=== PATIENT | female | born 1940 | race Caucasian/White ===

== ENCOUNTER 2018-02-14 16:31 | Emergency (ER) | payer OTHER ==
[~2018-02-14] VITALS: Ht 157.4 cm; Wt 78.5 kg
[~2018-02-14 16:31] MED LIST: AEROECLIPSE NEB1 DEV DEVI; ALPRAZOLAM0.5 M3 PO; CITALOPRAM HYDR20 MG PO; DOXYCYCLINE100 M3 PO; DRAMAMINE LESS25 MG PO; DUONEB 3 MG/3 ML3 M1 NEB; FUROSEMIDE20 MG PO; HYDROCODONE BIT1 T11 PO; LEVOFLOXACIN500 MG PO; LISINOPRIL10 MG PO; MIDODRINE HCL10 MG PO; MUCINEX1200 M1 PO; NORCO 325 MG-51 TAB PO; NORCO 5-325 TA1 EACH PO; PREDNISONE10 MG PO; SIMVASTATIN10 MG PO; SYNTHROID,LEV100 MCG PO; TESSALON PERLE100 M1 PO; ZITHROMAX250 MG PO; ZOFRAN4 MG PO
[2018-02-14 17:22] LABS: BILIRUBIN NEGATIVE (NEGATIVE); BLOOD 2+ (NEGATIVE); CLARITY CLEAR (CLEAR); COLOR YELLOW (YELLOW); GLUCOSE NEGATIVE (NEGATIVE); KETONE NEGATIVE (NEGATIVE); LEUKO ESTERASE 3+ (NEGATIVE); NITRITE NEGATIVE (NEGATIVE); SPECIFIC GRAVITY <= 1.005 (1.005-1.030); UROBILINOGEN 0.2 E.U./dl (0.2-1.0)
[2018-02-14 17:30] LABS: BACTERIA TRACE
[2018-02-14 17:31] LABS: WBC TNTC wbc/hpf (0-5)
[2018-02-14] MEDS ORDERED: AMINOPHYLLIN200 MG PO (17:39)
[2018-02-14] MEDS ORDERED: PYRIDIUM200 M1 PO (17:39)
[2018-02-14 17:46] VITALS: BP 140/70
== END 2018-02-14 17:58 | disposition home or self-care (01) ==
LOC: ED 16:31
PROVIDERS: Physician Assistant
DX: N39.0 Urinary tract infection, site not specified (principal); R31.9 Hematuria, unspecified; Z90.49 Acquired absence of other specified parts of digestive tract; Z79.899 Other long term (current) drug therapy

== ENCOUNTER 2018-03-11 09:28 | Emergency (ER) | payer OTHER ==
[~2018-03-11] VITALS: Ht 157.4 cm; Wt 77.1 kg
[~2018-03-11 09:28] MED LIST changes: +AMINOPHYLLIN200 MG PO; +PYRIDIUM200 M1 PO
[2018-03-11 09:32] VITALS: BP 152/78
[2018-03-11 10:04] LABS: BILIRUBIN NEGATIVE (NEGATIVE); BLOOD 1+ (NEGATIVE); CLARITY CLEAR (CLEAR); COLOR YELLOW (YELLOW); GLUCOSE NEGATIVE (NEGATIVE); KETONE NEGATIVE (NEGATIVE); LEUKO ESTERASE NEGATIVE (NEGATIVE); NITRITE NEGATIVE (NEGATIVE); UROBILINOGEN 0.2 E.U./dl (0.2-1.0)
[2018-03-11 10:12] LABS: BACTERIA TRACE; EPITHELIAL CELLS 30-35
[2018-03-11 10:13] LABS: URINE AMPHETAMINES < 1000 (1000ng/ml); URINE BARBITURATES < 200 (200ng/ml); URINE BENZODIAZEPINES > 200 (200ng/ml); URINE CANNABINOIDS (THC) < 50 (50ng/ml); URINE COCAINE < 300 (300ng/ml); URINE METHADONE < 300 (300ng/ml); URINE OPIATES > 300 (300ng/ml)
[2018-03-11 10:17] LABS: URINE PHENCYCLIDINE < 25 (25ng/ml)
[2018-03-11] MEDS ORDERED: [UNRECOGNIZED DRUG - CODE] MC (11:35)
== END 2018-03-11 11:50 | disposition home or self-care (01) ==
LOC: ED 09:28
PROVIDERS: Emergency Medicine
DX: B37.2 Candidiasis of skin and nail (principal); G89.29 Other chronic pain; M54.5 Low back pain; K21.9 Gastro-esophageal reflux disease without esophagitis; I10 Essential (primary) hypertension; E78.5 Hyperlipidemia, unspecified; E66.9 Obesity, unspecified; Z68.34 Body mass index [BMI] 34.0-34.9, adult; Z79.899 Other long term (current) drug therapy

== ENCOUNTER 2018-05-13 09:18 | Emergency (ER) | payer OTHER ==
[~2018-05-13] VITALS: Wt 77.1 kg
[~2018-05-13 09:18] MED LIST changes: +[UNRECOGNIZED DRUG - CODE] MC
[2018-05-13 09:19] VITALS: BP 151/78
== END 2018-05-13 11:10 | disposition home or self-care (01) ==
LOC: ED 09:18
DX: G89.29 Other chronic pain (principal); I10 Essential (primary) hypertension; K21.9 Gastro-esophageal reflux disease without esophagitis; E78.5 Hyperlipidemia, unspecified; E66.9 Obesity, unspecified; Z68.34 Body mass index [BMI] 34.0-34.9, adult; Z90.49 Acquired absence of other specified parts of digestive tract; Z79.899 Other long term (current) drug therapy

== ENCOUNTER 2019-06-16 17:48 | Emergency (ER) | payer OTHER ==
[~2019-06-16] VITALS: Ht 157.4 cm; Wt 77.1 kg
[~2019-06-16 17:48] MED LIST changes: +CEFUROXIME AXE500 MG PO; +SIMVASTATIN20 MG PO
[2019-06-16 17:50] VITALS: BP 168/38
[2019-06-16 18:26] LABS: BASO % 0.2 % (0.0-1.0); EOS # 0.1 10*3/uL (0.0-0.4); EOS % 1.1 % (1.0-4.0); HEMATOCRIT 41.1 % (37.0-47.0); HEMOGLOBIN 12.9 g/dl (12.0-16.0); LYMPH # 3.1 10*3/uL (1.3-4.4); LYMPH % 37.1 % (27.0-41.0); MEAN CELL VOLUME 89.3 fl (81.0-99.0); MEAN CORPUSCULAR HGB CONC 31.4 g/dl (33.0-37.0); MEAN PLATELET VOLUME 11.1 fl (9.6-12.3); MONO # 0.7 10*3/uL (0.1-1.0); MONO % 8.3 % (3.0-9.0); NEUT # 4.5 10*3/uL (2.3-7.9); NEUT % 53.1 % (47.0-73.0); PLATELET COUNT AUTOMATED 254 10*3/uL (130-400); RED CELL DISTRI WIDTH 14.2 % (0-14.5); WHITE BLOOD COUNT 8.4 10*3/uL (4.8-10.8)
[2019-06-16 18:40] LABS: ALKALINE PHOSPHATASE 88 U/L (45-117); BUN 10 mg/dl (7-24); CHLORIDE 105 mmol/L (98-107); CREATININE 0.86 mg/dL (0.55-1.02); LIPASE 136 U/L (73-393); POTASSIUM 4.1 mmol/L (3.5-5.1); SGOT/AST 14 IU/L (3-35); SGPT/ALT 27 U/L (12-78); SODIUM 140 mmol/L (136-145); TOTAL PROTEIN 7.2 gm/dL (6.4-8.2)
[2019-06-16 18:58] LABS: BILIRUBIN NEGATIVE (NEGATIVE); BLOOD TRACE-INTACT (NEGATIVE); CLARITY CLEAR (CLEAR); COLOR YELLOW (YELLOW); GLUCOSE NEGATIVE (NEGATIVE); KETONE NEGATIVE (NEGATIVE); LEUKO ESTERASE NEGATIVE (NEGATIVE); NITRITE NEGATIVE (NEGATIVE); PH 7.5 (5.0-9.0); UROBILINOGEN 0.2 E.U./dl (0.2-1.0)
[2019-06-16 19:21] LABS: BACTERIA 1+; MUCOUS 2+; RBC 0-2 rbc/hpf (0-2)
[2019-06-16] MEDS ORDERED: ZOFRAN4 MG PO (22:30)
== END 2019-06-16 23:12 | disposition home or self-care (01) ==
LOC: ED 17:48
PROVIDERS: Nurse Practitioner Family
DX: K29.70 Gastritis, unspecified, without bleeding (principal); G89.29 Other chronic pain; I10 Essential (primary) hypertension; K21.9 Gastro-esophageal reflux disease without esophagitis; E78.5 Hyperlipidemia, unspecified; E66.9 Obesity, unspecified; Z68.30 Body mass index [BMI] 30.0-30.9, adult; Z79.2 Long term (current) use of antibiotics; Z79.899 Other long term (current) drug therapy; Z90.49 Acquired absence of other specified parts of digestive tract

== ENCOUNTER 2020-08-20 13:44 | Emergency (ER) | payer OTHER ==
[~2020-08-20] VITALS: Ht 157.4 cm; Wt 77.1 kg
[2020-08-20 13:55] VITALS: BP 137/55
[2020-08-20] MEDS ORDERED: FLONASE ALLERG9.9 ML NAS ×2 (14:08→14:16)
[2020-08-20] MEDS ORDERED: AUGMENTIN 875875 MG PO ×2 (14:08→14:16)
== END 2020-08-20 14:07 | disposition home or self-care (01) ==
LOC: ED 13:44
DX: H66.91 Otitis media, unspecified, right ear (principal); I10 Essential (primary) hypertension; K21.9 Gastro-esophageal reflux disease without esophagitis; F41.9 Anxiety disorder, unspecified; F32.9 Major depressive disorder, single episode, unspecified; Z79.899 Other long term (current) drug therapy

== ENCOUNTER 2021-05-07 15:46 | Emergency (ER) | payer OTHER ==
[~2021-05-07] VITALS: Ht 157.4 cm; Wt 73.0 kg
[~2021-05-07 15:46] MED LIST changes: +AUGMENTIN 875875 MG PO; +FLONASE ALLERG9.9 ML NAS
[2021-05-07 15:51] VITALS: BP 165/78
[2021-05-07 16:43] LABS: BASO % 0.5 % (0.0-1.0); EOS # 0.1 10*3/uL (0.0-0.4); EOS % 1.5 % (1.0-4.0); HEMATOCRIT 39.6 % (37.0-47.0); LYMPH # 2.8 10*3/uL (1.3-4.4); LYMPH % 32.6 % (27.0-41.0); MEAN CELL VOLUME 84.8 fl (81.0-99.0); MEAN CORPUSCULAR HGB 27.2 pg (27.0-31.0); MEAN CORPUSCULAR HGB CONC 32.1 g/dl (33.0-37.0); MEAN PLATELET VOLUME 11.9 fl (9.6-12.3); MONO # 0.7 10*3/uL (0.1-1.0); MONO % 8.4 % (3.0-9.0); NEUT # 4.8 10*3/uL (2.3-7.9); NEUT % 56.8 % (47.0-73.0); PLATELET COUNT AUTOMATED 325 10*3/uL (130-400); RED BLOOD COUNT 4.67 10*6/uL (4.10-5.10); RED CELL DISTRI WIDTH 14.3 % (0-14.5); WHITE BLOOD COUNT 8.4 10*3/uL (4.8-10.8)
[2021-05-07 17:07] LABS: ALBUMIN 3.4 gm/dl (3.1-4.5); ALKALINE PHOSPHATASE 79 U/L (45-117); BUN 10 mg/dl (7-24); CHLORIDE 104 mmol/L (98-107); CREATININE 0.74 mg/dL (0.55-1.02); LIPASE 94 U/L (73-393); POTASSIUM 3.6 mmol/L (3.5-5.1); SGOT/AST 13 IU/L (3-35); SGPT/ALT 15 U/L (12-78); SODIUM 141 mmol/L (136-145); TOTAL PROTEIN 6.4 gm/dL (6.4-8.2)
[2021-05-07 17:09] LABS: TROPONIN I < 0.015 ng/ml (<0.045)
[2021-05-07] MEDS ORDERED: PRILOSEC20 M1 PO (18:06)
== END 2021-05-07 18:57 | disposition home or self-care (01) ==
LOC: ED 15:46
PROVIDERS: Emergency Medicine
DX: R10.13 Epigastric pain (principal); R10.11 Right upper quadrant pain; K21.9 Gastro-esophageal reflux disease without esophagitis; G89.29 Other chronic pain; I10 Essential (primary) hypertension; Z90.49 Acquired absence of other specified parts of digestive tract; Z79.899 Other long term (current) drug therapy

== ENCOUNTER 2021-06-04 14:09 | Emergency (ER) | payer OTHER ==
[~2021-06-04] VITALS: Ht 157.4 cm; Wt 72.1 kg
[~2021-06-04 14:09] MED LIST changes: +PRILOSEC20 M1 PO
[2021-06-04 14:14] VITALS: BP 162/71
[2021-06-04 15:17] LABS: BASO % 0.3 % (0.0-1.0); EOS # 0.2 10*3/uL (0.0-0.4); EOS % 2.3 % (1.0-4.0); HEMATOCRIT 39.4 % (37.0-47.0); LYMPH # 2.6 10*3/uL (1.3-4.4); MEAN CELL VOLUME 85.8 fl (81.0-99.0); MEAN CORPUSCULAR HGB 27.2 pg (27.0-31.0); MEAN CORPUSCULAR HGB CONC 31.7 g/dl (33.0-37.0); MEAN PLATELET VOLUME 10.6 fl (9.6-12.3); MONO # 0.8 10*3/uL (0.1-1.0); MONO % 9.6 % (3.0-9.0); NEUT % 57.5 % (47.0-73.0); PLATELET COUNT AUTOMATED 291 10*3/uL (130-400); RED BLOOD COUNT 4.59 10*6/uL (4.10-5.10); RED CELL DISTRI WIDTH 14.1 % (0-14.5); WHITE BLOOD COUNT 8.7 10*3/uL (4.8-10.8)
[2021-06-04 15:38] LABS: ALBUMIN 3.3 gm/dl (3.1-4.5); ALKALINE PHOSPHATASE 84 U/L (45-117); BUN 14 mg/dl (7-24); CHLORIDE 106 mmol/L (98-107); CREATININE 0.76 mg/dL (0.55-1.02); LIPASE 90 U/L (73-393); POTASSIUM 4.2 mmol/L (3.5-5.1); SGOT/AST 12 IU/L (3-35); SGPT/ALT 18 U/L (12-78); SODIUM 140 mmol/L (136-145); TOTAL PROTEIN 6.5 gm/dL (6.4-8.2)
[2021-06-04] MEDS ORDERED: OMEPRAZOLE20 M2 PO (16:40)
[2021-06-04] MEDS ORDERED: ZOFRAN4 MG PO (16:40)
== END 2021-06-04 17:24 | disposition home or self-care (01) ==
LOC: ED 14:09
PROVIDERS: Physician Assistant
DX: R10.9 Unspecified abdominal pain (principal); R11.10 Vomiting, unspecified; K30 Functional dyspepsia; Z79.899 Other long term (current) drug therapy; Z79.2 Long term (current) use of antibiotics; Z90.49 Acquired absence of other specified parts of digestive tract; Z96.22 Myringotomy tube(s) status

== ENCOUNTER 2021-08-27 11:43 | Emergency (ER) | payer OTHER ==
[~2021-08-27] VITALS: Wt 69.9 kg
[~2021-08-27 11:43] MED LIST changes: +OMEPRAZOLE20 M2 PO
[2021-08-27 11:56] VITALS: BP 140/70
[2021-08-27] MEDS ORDERED: NEURONTIN100 MG PO (12:25)
[2021-08-27 12:35] LABS: BASO % 0.4 % (0.0-1.0); EOS # 0.2 10*3/uL (0.0-0.4); EOS % 2.6 % (1.0-4.0); LYMPH # 2.4 10*3/uL (1.3-4.4); LYMPH % 34.9 % (27.0-41.0); MEAN CELL VOLUME 86.2 fl (81.0-99.0); MEAN CORPUSCULAR HGB 26.5 pg (27.0-31.0); MEAN CORPUSCULAR HGB CONC 30.8 g/dl (33.0-37.0); MEAN PLATELET VOLUME 10.2 fl (9.6-12.3); MONO # 0.6 10*3/uL (0.1-1.0); MONO % 8.1 % (3.0-9.0); NEUT # 3.7 10*3/uL (2.3-7.9); NEUT % 53.7 % (47.0-73.0); PLATELET COUNT AUTOMATED 304 10*3/uL (130-400); RED BLOOD COUNT 4.64 10*6/uL (4.10-5.10); RED CELL DISTRI WIDTH 14.3 % (0-14.5); WHITE BLOOD COUNT 6.8 10*3/uL (4.8-10.8)
[2021-08-27 12:47] LABS: BUN 12 mg/dl (7-24); CHLORIDE 106 mmol/L (98-107); CREATININE 0.66 mg/dL (0.55-1.02); POTASSIUM 4.3 mmol/L (3.5-5.1); SODIUM 139 mmol/L (136-145)
[2021-08-27 12:52] LABS: BILIRUBIN Negative (Negative); BLOOD Negative (Negative); CLARITY Clear (Clear); COLOR Yellow (Yellow); GLUCOSE Negative (Negative); KETONE Trace (Negative); LEUKO ESTERASE Negative (Negative); NITRITE Negative (Negative); PH 6.5 (4.5-8.0)
[2021-08-27] MEDS ORDERED: PYRIDIUM200 M1 PO (13:21)
== END 2021-08-27 13:29 | disposition home or self-care (01) ==
LOC: ED 11:43
PROVIDERS: Nurse Practitioner Family
DX: R30.0 Dysuria (principal); R10.9 Unspecified abdominal pain; M79.661 Pain in right lower leg; M79.662 Pain in left lower leg; Z79.899 Other long term (current) drug therapy

== ENCOUNTER 2021-09-24 14:56 | Emergency (ER) | payer OTHER ==
[~2021-09-24] VITALS: Wt 72.1 kg
[~2021-09-24 14:56] MED LIST changes: +NEURONTIN100 MG PO
[2021-09-24 15:51] LABS: BASO % 0.3 % (0.0-1.0); EOS % 0.1 % (1.0-4.0); HEMATOCRIT 40.4 % (37.0-47.0); LYMPH # 2.3 10*3/uL (1.3-4.4); LYMPH % 30.3 % (27.0-41.0); MEAN CELL VOLUME 83.3 fl (81.0-99.0); MEAN CORPUSCULAR HGB 26.8 pg (27.0-31.0); MEAN CORPUSCULAR HGB CONC 32.2 g/dl (33.0-37.0); MEAN PLATELET VOLUME 10.5 fl (9.6-12.3); MONO # 0.5 10*3/uL (0.1-1.0); MONO % 6.5 % (3.0-9.0); NEUT # 4.7 10*3/uL (2.3-7.9); NEUT % 62.5 % (47.0-73.0); PLATELET COUNT AUTOMATED 355 10*3/uL (130-400); RED BLOOD COUNT 4.85 10*6/uL (4.10-5.10); RED CELL DISTRI WIDTH 14.2 % (0-14.5); WHITE BLOOD COUNT 7.5 10*3/uL (4.8-10.8)
[2021-09-24 16:16] LABS: ALBUMIN 3.9 gm/dl (3.1-4.5); ALKALINE PHOSPHATASE 169 U/L (45-117); BUN 15 mg/dl (7-24); CHLORIDE 100 mmol/L (98-107); CREATININE 0.96 mg/dL (0.55-1.02); LIPASE 91 U/L (73-393); POTASSIUM 3.6 mmol/L (3.5-5.1); SGOT/AST 31 IU/L (3-35); SGPT/ALT 57 U/L (12-78); SODIUM 136 mmol/L (136-145); TOTAL PROTEIN 7.7 gm/dL (6.4-8.2)
[2021-09-24 16:17] LABS: BACTERIA 1+; BILIRUBIN Negative (Negative); BLOOD Negative (Negative); CLARITY Clear (Clear); COLOR Dark Yellow (Yellow); GLUCOSE Negative (Negative); KETONE 2+ (Negative); LEUKO ESTERASE Trace (Negative); NITRITE Negative (Negative)
[2021-09-24 20:16] LABS: ACETAMINOPHEN (TYLENOL) 21.3 ug/ml (10-30)
[2021-09-24 20:20] LABS: ETHYL ALCOHOL < 3.0 mg/dl (<3)
[2021-09-24 20:21] LABS: URINE AMPHETAMINES < 1000 (1000ng/ml); URINE BARBITURATES < 200 (200ng/ml); URINE BENZODIAZEPINES < 200 (200ng/ml); URINE CANNABINOIDS (THC) < 50 (50ng/ml); URINE COCAINE < 300 (300ng/ml); URINE METHADONE < 300 (300ng/ml); URINE OPIATES > 300 (300ng/ml)
[2021-09-24 20:23] LABS: URINE PHENCYCLIDINE < 25 (25ng/ml)
[2021-09-25 02:01] VITALS: BP 103/60
[2021-09-25] MEDS ORDERED: ZOFRAN4 MG PO (10:16)
== END 2021-09-25 10:00 | disposition home or self-care (01) ==
LOC: ED 14:56
PROVIDERS: Emergency Medicine; Physician Assistant
DX: F43.21 Adjustment disorder with depressed mood (principal); Z20.822 Contact with and (suspected) exposure to COVID-19; Z79.899 Other long term (current) drug therapy

== ENCOUNTER → 2021-10-03 | Outpatient (CLI) | payer OTHER ==
[2021-10-03 14:26] LABS: BILIRUBIN Negative (Negative); BLOOD Negative (Negative); CLARITY Clear (Clear); COLOR Yellow (Yellow); GLUCOSE Negative (Negative); KETONE Negative (Negative); LEUKO ESTERASE Negative (Negative); NITRITE Negative (Negative); UROBILINOGEN 0.2 E.U./dl (0.0-1.0)
[2021-10-03 14:36] LABS: EPITHELIAL CELLS 0-2; RBC 0-2 rbc/hpf (0-2); WBC 0-2 wbc/hpf (0-5)
== END | disposition home or self-care (01) ==
LOC: LAB 13:56
PROVIDERS: ATTEND Student in an Organized Health Care Education/Training Program
DX: R30.0 Dysuria (principal)

== ENCOUNTER 2022-02-14 13:11 | Emergency (ER) | payer OTHER ==
[2022-02-14 13:17] VITALS: BP 107/64
== END 2022-02-14 17:09 | disposition home or self-care (01) ==
LOC: ED 13:11
DX: S42.291A Other displaced fracture of upper end of right humerus, initial encounter for closed fracture (principal); Z79.899 Other long term (current) drug therapy; Z90.49 Acquired absence of other specified parts of digestive tract; Z98.890 Other specified postprocedural states; W17.89XA Other fall from one level to another, initial encounter; Y93.89 Activity, other specified; Y92.89 Other specified places as the place of occurrence of the external cause; Y99.8 Other external cause status

== ENCOUNTER → 2022-02-27 | Outpatient (CLI) | payer OTHER | END | disposition home or self-care (01) | LOC: ORTHO 01:25 | PROVIDERS: ATTEND Orthopaedic Surgery | DX: S42.291D Other displaced fracture of upper end of right humerus, subsequent encounter for fracture with routine healing (principal); X58.XXXD Exposure to other specified factors, subsequent encounter ==

== ENCOUNTER → 2022-04-17 | Outpatient (CLI) | payer OTHER | END | disposition home or self-care (01) | LOC: ORTHO 07:22 | PROVIDERS: ATTEND Orthopaedic Surgery | DX: S12.9XXD Fracture of neck, unspecified, subsequent encounter (principal); X58.XXXD Exposure to other specified factors, subsequent encounter ==

== ENCOUNTER → 2022-09-21 | Outpatient (CLI) | payer OTHER ==
[2022-09-21 15:49] LABS: BASO % 0.4 % (0.0-1.0); EOS # 0.2 10*3/uL (0.0-0.4); EOS % 2.1 % (1.0-4.0); HEMATOCRIT 38.7 % (37.0-47.0); LYMPH # 2.8 10*3/uL (1.3-4.4); LYMPH % 30.1 % (27.0-41.0); MEAN CELL VOLUME 79.3 fl (81.0-99.0); MEAN CORPUSCULAR HGB 23.6 pg (27.0-31.0); MEAN CORPUSCULAR HGB CONC 29.7 g/dl (33.0-37.0); MEAN PLATELET VOLUME 9.7 fl (9.6-12.3); MONO # 0.7 10*3/uL (0.1-1.0); MONO % 7.3 % (3.0-9.0); NEUT # 5.5 10*3/uL (2.3-7.9); NEUT % 59.8 % (47.0-73.0); PLATELET COUNT AUTOMATED 390 10*3/uL (130-400); RED BLOOD COUNT 4.88 10*6/uL (4.10-5.10); RED CELL DISTRI WIDTH 17.2 % (0-14.5); WHITE BLOOD COUNT 9.2 10*3/uL (4.8-10.8)
[2022-09-21 16:22] LABS: ALKALINE PHOSPHATASE 121 U/L (45-117); BUN 11 mg/dl (7-24); CHLORIDE 101 mmol/L (98-107); CREATININE 0.69 mg/dL (0.55-1.02); POTASSIUM 3.7 mmol/L (3.5-5.1); SGOT/AST 14 IU/L (3-35); SGPT/ALT 24 U/L (12-78); SODIUM 137 mmol/L (136-145); TOTAL PROTEIN 7.2 gm/dL (6.4-8.2)
== END | disposition home or self-care (01) ==
LOC: LAB 15:10
PROVIDERS: ATTEND Student in an Organized Health Care Education/Training Program
DX: I10 Essential (primary) hypertension (principal); R74.8 Abnormal levels of other serum enzymes; R73.03 Prediabetes

== ENCOUNTER → 2023-08-15 | Outpatient (CLI) | payer OTHER | END | disposition home or self-care (01) | LOC: LAB 16:25 | PROVIDERS: ATTEND Student in an Organized Health Care Education/Training Program | DX: E03.9 Hypothyroidism, unspecified (principal) ==

== ENCOUNTER → 2024-09-26 | Outpatient (CLI) | payer OTHER ==
[~2024-09-26] MED LIST changes: +AMOXICILLIN500 M3 PO; +HYDROCODONE-AC1 EAC1 PO; +LASIX20 MG PO; +LEVOTHYROXINE100 MC2 PO; +MASON NATURAL325 MG PO
== END | disposition home or self-care (01) ==
LOC: ORTHO 01:31
PROVIDERS: ATTEND Orthopaedic Surgery
DX: S32.592D Other specified fracture of left pubis, subsequent encounter for fracture with routine healing (principal); M16.0 Bilateral primary osteoarthritis of hip; X58.XXXD Exposure to other specified factors, subsequent encounter

== ENCOUNTER 2024-10-22 11:03 | Inpatient (IN) | payer OTHER ==
[~2024-10-22] VITALS: Ht 157.4 cm; Wt 52.7 kg
[2024-10-22 10:36] VITALS: BP 114/66
[~2024-10-22 11:03] MED LIST changes: +EXELON1 EACH T; +LORAZEPAM0.5 M1 PO; +NAMENDA-5 PO
[2024-10-22] MEDS ORDERED: Ondansetron4 MG PO (11:36)
[2024-10-22] MEDS ORDERED: LIDOCAINE PAIN1 EACH T (11:37)
[2024-10-22] MEDS ORDERED: MG-AL HYDROXIDE/SIMETICONE 30 ML UDC PO PRN (11:45)
[2024-10-22] MEDS ORDERED: ACETAMINOPHEN 325 MG TAB PO PRN ×2 (11:45→18:34)
[2024-10-22] MEDS ORDERED: Ziprasidone Mesylate 20 MG VIAL IM PRN (11:45)
[2024-10-22] MEDS ORDERED: LORazepam 1 MG TAB PO PRN (11:45)
[2024-10-22] MEDS ORDERED: LORazepam 2 MG/ML VIAL IM PRN (11:45)
[2024-10-22] MEDS ORDERED: Magnesium Hydroxide 30 ML UDC PO PRN (11:45)
[2024-10-22] MEDS ORDERED: Acetaminophen/Hydrocodone ES 7.5/325 tablet PO PRN (18:35)
[2024-10-22 20:00] VITALS: BP 149/87
[2024-10-22] MEDS ORDERED: Mirtazapine 15 MG TAB PO SCH (21:00)
[2024-10-22] MEDS ORDERED: GABAPENTIN 100 MG CAP PO SCH (21:00)
[2024-10-22] MEDS ORDERED: SIMVASTATIN 20 MG TAB PO SCH (21:00)
[2024-10-22] MEDS ORDERED: Menthol/Zinc Oxide 4 GM THIN T SCH (21:00)
[2024-10-22] MEDS ORDERED: Memantine Hydrochloride 5 MG TAB PO SCH (22:00)
[2024-10-23 08:11] VITALS: BP 142/73
[2024-10-23] MEDS ORDERED: FUROSEMIDE 20 MG TAB PO SCH (09:00)
[2024-10-23] MEDS ORDERED: Rivastigmine Tartrate 4.6 MG/24 HR PATCH T SCH (09:00)
[2024-10-23] MEDS ORDERED: Duloxetine Hydrochloride 30 MG CAP PO SCH (09:40)
[2024-10-23] MEDS ORDERED: Fosfomycin Tromethamine 3 GM PDS PO SCH (10:00)
[2024-10-23] MEDS ORDERED: Metoprolol Tartrate 25 MG TAB PO SCH (11:50)
[2024-10-23 20:00] VITALS: BP 128/60
[2024-10-24 08:00] VITALS: BP 117/52
[2024-10-24] MEDS ORDERED: FERROUS SULFATE 325 MG TAB PO SCH (09:00)
[2024-10-24] MEDS ORDERED: Duloxetine Hydrochloride 30 MG CAP PO ONE (10:05)
[2024-10-24] MEDS ORDERED: LEVOFLOXACIN 250 MG TAB PO SCH (13:35)
[2024-10-24 20:00] VITALS: BP 108/58
[2024-10-24] MEDS ORDERED: AMOXICILLIN 875 MG TAB PO SCH (21:00)
[2024-10-24] MEDS ORDERED: Memantine Hydrochloride 5 MG TAB PO SCH (21:00)
[2024-10-24] MEDS ORDERED: AMOXICILLIN 500 MG CAP PO SCH (22:00)
[2024-10-25 06:25] LABS: BASO # 0.1 10*3/uL (0.0-0.1); BASO % 0.5 % (0.0-1.0); EOS # 0.5 10*3/uL (0.0-0.4); EOS % 3.7 % (1.0-4.0); HEMATOCRIT 34.9 % (37.0-47.0); MEAN CELL VOLUME 80.4 fl (81.0-99.0); MEAN CORPUSCULAR HGB CONC 29.8 g/dl (33.0-37.0); MEAN PLATELET VOLUME 9.9 fl (9.6-12.3); MONO # 1.2 10*3/uL (0.1-1.0); MONO % 9.3 % (3.0-9.0); NEUT % 53.2 % (47.0-73.0); PLATELET COUNT AUTOMATED 604 10*3/uL (130-400); RED BLOOD COUNT 4.34 10*6/uL (4.10-5.10); RED CELL DISTRI WIDTH 19.6 % (0-14.5); WHITE BLOOD COUNT 13.1 10*3/uL (4.8-10.8)
[2024-10-25 07:50] LABS: BUN 10 mg/dl (9-23); CHLORIDE 103 mmol/L (98-107); POTASSIUM 3.8 mmol/L (3.4-5.1)
[2024-10-25 08:30] VITALS: BP 119/54
[2024-10-25] MEDS ORDERED: Duloxetine Hydrochloride 60 MG CAP PO SCH (09:00)
[2024-10-25 20:00] VITALS: BP 104/52
[2024-10-26 07:49] VITALS: BP 110/49
[2024-10-26] MEDS ORDERED: Rivastigmine Tartrate 9.5 MG/24 HR PATCH T SCH (09:00)
[2024-10-26] MEDS ORDERED: Albuterol Sulf/Ipratropium 3 ML VIAL NEB PRN (11:40)
[2024-10-26 20:00] VITALS: BP 108/56
[2024-10-27 08:00] VITALS: BP 122/59
[2024-10-27 20:00] VITALS: BP 106/58
[2024-10-27] MEDS ORDERED: Memantine Hydrochloride 10 MG TAB PO SCH (21:00)
[2024-10-28 08:00] VITALS: BP 113/50
[2024-10-28 20:00] VITALS: BP 148/63
[2024-10-28] MEDS ORDERED: Duloxetine Hydrochloride 30 MG CAP PO SCH (21:00)
[2024-10-29 08:20] VITALS: BP 110/62
[2024-10-29 20:00] VITALS: BP 105/47
[2024-10-30 06:25] LABS: BASO % 0.4 % (0.0-1.0); EOS # 0.4 10*3/uL (0.0-0.4); EOS % 3.7 % (1.0-4.0); MEAN CORPUSCULAR HGB 23.5 pg (27.0-31.0); MEAN CORPUSCULAR HGB CONC 29.4 g/dl (33.0-37.0); MEAN PLATELET VOLUME 9.5 fl (9.6-12.3); MONO # 0.9 10*3/uL (0.1-1.0); MONO % 7.8 % (3.0-9.0); NEUT # 6.4 10*3/uL (2.3-7.9); NEUT % 57.3 % (47.0-73.0); PLATELET COUNT AUTOMATED 630 10*3/uL (130-400); RED CELL DISTRI WIDTH 19.4 % (0-14.5); WHITE BLOOD COUNT 11.2 10*3/uL (4.8-10.8)
[2024-10-30 06:49] LABS: BUN 7 mg/dl (9-23); CHLORIDE 103 mmol/L (98-107); POTASSIUM 3.9 mmol/L (3.4-5.1)
[2024-10-30 08:10] VITALS: BP 118/47
[2024-10-30] MEDS ORDERED: RIVASTIGMINE 13.3 MG/24 HR TDM T SCH (09:00)
[2024-10-30 20:00] VITALS: BP 109/65
[2024-10-31 08:00] VITALS: BP 102/55
[2024-10-31 16:58] LABS: BASO % 0.4 % (0.0-1.0); EOS # 0.3 10*3/uL (0.0-0.4); EOS % 2.2 % (1.0-4.0); HEMATOCRIT 33.2 % (37.0-47.0); MEAN CELL VOLUME 80.2 fl (81.0-99.0); MEAN CORPUSCULAR HGB 24.2 pg (27.0-31.0); MEAN CORPUSCULAR HGB CONC 30.1 g/dl (33.0-37.0); MEAN PLATELET VOLUME 9.7 fl (9.6-12.3); MONO # 0.9 10*3/uL (0.1-1.0); MONO % 7.6 % (3.0-9.0); NEUT # 6.8 10*3/uL (2.3-7.9); NEUT % 59.8 % (47.0-73.0); PLATELET COUNT AUTOMATED 603 10*3/uL (130-400); RED BLOOD COUNT 4.14 10*6/uL (4.10-5.10); RED CELL DISTRI WIDTH 19.6 % (0-14.5); WHITE BLOOD COUNT 11.4 10*3/uL (4.8-10.8)
[2024-10-31] MEDS ORDERED: Acetaminophen/Hydrocodone ES 7.5/325 tablet PO PRN (19:25)
[2024-10-31 20:00] VITALS: BP 105/54
[2024-11-01 08:00] VITALS: BP 122/58
[2024-11-01 20:00] VITALS: BP 105/77
[2024-11-02 06:42] LABS: BASO # 0.1 10*3/uL (0.0-0.1); BASO % 0.7 % (0.0-1.0); EOS # 0.4 10*3/uL (0.0-0.4); EOS % 3.6 % (1.0-4.0); HEMATOCRIT 32.8 % (37.0-47.0); MEAN CORPUSCULAR HGB CONC 29.6 g/dl (33.0-37.0); MEAN PLATELET VOLUME 9.7 fl (9.6-12.3); MONO # 0.9 10*3/uL (0.1-1.0); MONO % 9.5 % (3.0-9.0); NEUT # 5.2 10*3/uL (2.3-7.9); NEUT % 54.4 % (47.0-73.0); PLATELET COUNT AUTOMATED 581 10*3/uL (130-400); RED BLOOD COUNT 4.05 10*6/uL (4.10-5.10); RED CELL DISTRI WIDTH 19.2 % (0-14.5); WHITE BLOOD COUNT 9.6 10*3/uL (4.8-10.8)
[2024-11-02 08:00] VITALS: BP 110/52
[2024-11-02 20:00] VITALS: BP 111/55
[2024-11-03 06:18] LABS: BASO # 0.1 10*3/uL (0.0-0.1); BASO % 0.6 % (0.0-1.0); EOS # 0.3 10*3/uL (0.0-0.4); EOS % 3.1 % (1.0-4.0); HEMATOCRIT 33.2 % (37.0-47.0); MEAN CELL VOLUME 81.2 fl (81.0-99.0); MEAN CORPUSCULAR HGB 23.7 pg (27.0-31.0); MEAN CORPUSCULAR HGB CONC 29.2 g/dl (33.0-37.0); MONO # 1.1 10*3/uL (0.1-1.0); MONO % 10.3 % (3.0-9.0); NEUT # 6.1 10*3/uL (2.3-7.9); NEUT % 54.5 % (47.0-73.0); PLATELET COUNT AUTOMATED 577 10*3/uL (130-400); RED BLOOD COUNT 4.09 10*6/uL (4.10-5.10); WHITE BLOOD COUNT 11.1 10*3/uL (4.8-10.8)
[2024-11-03 08:00] VITALS: BP 104/63
[2024-11-03] MEDS ORDERED: Capsaicin 0.075% Cream 57 GM TUBE T SCH (13:00)
[2024-11-03] MEDS ORDERED: GABAPENTIN 100 MG CAP PO SCH (14:00)
[2024-11-03 20:00] VITALS: BP 113/73
[2024-11-04 08:53] VITALS: BP 132/56
[2024-11-04] MEDS ORDERED: DULOXETINE HCL60 MG PO (09:58)
[2024-11-04] MEDS ORDERED: MEMANTINE HCL10 MG PO (09:58)
[2024-11-04] MEDS ORDERED: DULOXETINE HCL30 MG PO (09:58)
[2024-11-04] MEDS ORDERED: RIVASTIGMINE1 EAC2 T (09:58)
[2024-11-04] MEDS ORDERED: ARTHRITIS PAIN57 GM T (09:58)
[2024-11-04] MEDS ORDERED: HYDROCODONE-AC1 EAC2 PO (11:50)
== END 2024-11-04 12:23 | DRG 885 ==
LOC: EDHOLD 11:03 → 3N 11:03 → EDHOLD 11:04 → 3N 11:10
PROVIDERS: Internal Medicine; Registered Nurse; Student in an Organized Health Care Education/Training Program; ADMIT Psychiatry & Neurology Psychiatry; ATTEND Psychiatry & Neurology Psychiatry
PROC: GZHZZZZ Group Psychotherapy (ICD-10-PCS; principal; 2024-10-23)
PROC: GZ51ZZZ Individual Psychotherapy, Behavioral (ICD-10-PCS; 2024-10-23)
DX: F33.3 Major depressive disorder, recurrent, severe with psychotic symptoms (principal); E43 Unspecified severe protein-calorie malnutrition; G93.41 Metabolic encephalopathy; F23 Brief psychotic disorder; N39.0 Urinary tract infection, site not specified; F02.83 Dementia in other diseases classified elsewhere, unspecified severity, with mood disturbance; D50.9 Iron deficiency anemia, unspecified; M54.50 Low back pain, unspecified; B96.29 Other Escherichia coli [E. coli] as the cause of diseases classified elsewhere; K21.9 Gastro-esophageal reflux disease without esophagitis; L89.326 Pressure-induced deep tissue damage of left buttock; R73.9 Hyperglycemia, unspecified; E78.5 Hyperlipidemia, unspecified; I10 Essential (primary) hypertension; D75.839 Thrombocytosis, unspecified; G89.29 Other chronic pain; F41.1 Generalized anxiety disorder; G30.9 Alzheimer's disease, unspecified; Z90.49 Acquired absence of other specified parts of digestive tract; Z80.0 Family history of malignant neoplasm of digestive organs; Z79.899 Other long term (current) drug therapy; Z79.1 Long term (current) use of non-steroidal anti-inflammatories (NSAID); Z68.21 Body mass index [BMI] 21.0-21.9, adult

== ENCOUNTER 2025-01-12 11:10 | Inpatient (IN) | payer OTHER ==
[~2025-01-12 11:10] MED LIST changes: +ARTHRITIS PAIN57 GM T; +DULOXETINE HCL30 MG PO; +DULOXETINE HCL60 MG PO; +HYDROCODONE-AC1 EAC2 PO; +HYDROXYZINE PAM25 M1 PO; +LIDOCAINE PAIN1 EACH T; +MEMANTINE HCL10 MG PO; +Meclizine25 MG PO; +Ondansetron4 MG PO; +POTASSIUM CHLO10 ME4 PO; +PROTONIX40 MG PO; +RIVASTIGMINE1 EAC2 T
[2025-01-12] MEDS ORDERED: MORPHINE Sulfate 2 MG/ML SYR IV PRN (11:30)
[2025-01-12] MEDS ORDERED: Ondansetron Hydrochloride 4 MG/2 ML VIAL IV PRN (11:30)
[2025-01-12] MEDS ORDERED: ATROPINE SULFATE 1% 2 ML BOTTLE SL PRN (11:35)
[2025-01-12] MEDS ORDERED: diazePAM 10 MG/2 ML SYR IV PRN (11:35)
[2025-01-12] MEDS ORDERED: MORPHINE Sulfate 2 MG/ML SYR IV SCH (12:00)
== END 2025-01-12 14:08 | DRG 391 ==
LOC: EDHOLD 11:10
PROVIDERS: ADMIT Internal Medicine; ATTEND Internal Medicine
DX: K57.20 Diverticulitis of large intestine with perforation and abscess without bleeding (principal); E43 Unspecified severe protein-calorie malnutrition; K65.9 Peritonitis, unspecified; J18.9 Pneumonia, unspecified organism; G93.41 Metabolic encephalopathy; N82.0 Vesicovaginal fistula; E87.20 Acidosis, unspecified; Z68.45 Body mass index [BMI] 70 or greater, adult; Z66 Do not resuscitate; D50.9 Iron deficiency anemia, unspecified; K66.8 Other specified disorders of peritoneum; Z51.5 Encounter for palliative care